=== PATIENT | female | born 1930 | race Caucasian/White ===

== ENCOUNTER 2020-01-15 03:30 | Emergency (ER) | payer OTHER ==
[~2020-01-15] VITALS: Ht 154.9 cm; Wt 57.8 kg
[2020-01-15 03:34] VITALS: Ht 154.9 cm; Wt 57.8 kg
[2020-01-15 05:27] VITALS: BP 147/72
== END 2020-01-15 05:27 | disposition home or self-care (01) ==
LOC: ED 03:30
DX: S01.01XA Laceration without foreign body of scalp, initial encounter (principal); S30.0XXA Contusion of lower back and pelvis, initial encounter; I10 Essential (primary) hypertension; E03.9 Hypothyroidism, unspecified; Z88.1 Allergy status to other antibiotic agents; Z88.8 Allergy status to other drugs, medicaments and biological substances; W22.8XXA Striking against or struck by other objects, initial encounter; Y93.89 Activity, other specified; Y92.89 Other specified places as the place of occurrence of the external cause; Y99.8 Other external cause status
CPT/HCPCS: 90715; J2001

== ENCOUNTER 2020-01-18 09:02 | Emergency (ER) | payer OTHER ==
[2020-01-18 10:03] VITALS: Ht 167.6 cm
[2020-01-18 10:40] VITALS: BP 148/63
== END 2020-01-18 10:40 | disposition home or self-care (01) ==
LOC: ED 09:02
DX: S01.01XD Laceration without foreign body of scalp, subsequent encounter (principal); I10 Essential (primary) hypertension; E03.9 Hypothyroidism, unspecified; Z98.890 Other specified postprocedural states; Z88.1 Allergy status to other antibiotic agents; Z88.8 Allergy status to other drugs, medicaments and biological substances; X58.XXXA Exposure to other specified factors, initial encounter